=== PATIENT | female | born 1995 | race Hispanic/Latino ===

== ENCOUNTER 2019-03-18 11:20 | Emergency (ER) | payer MEDICAID ==
[2019-03-18] MEDS ORDERED: LIDOCAINE HCL-MPF 1% 2ML VIAL ONE (12:21)
[2019-03-18] MEDS ORDERED: ACETAMINOPHEN 325 MG TAB ONE (12:22)
[2019-03-18] MEDS ORDERED: KETOROLAC TROMETHAMINE 60 MG/2 ML VIAL ONE (12:22)
[2019-03-18] MEDS ORDERED: CEFTRIAXONE SODIUM 1 GM ONE (12:22)
== END 2019-03-18 12:41 | disposition home or self-care (01) ==
LOC: EDH 11:20
DX: J10.1 Influenza due to other identified influenza virus with other respiratory manifestations (principal); R50.81 Fever presenting with conditions classified elsewhere; J45.909 Unspecified asthma, uncomplicated; D64.9 Anemia, unspecified; Z87.891 Personal history of nicotine dependence
CPT/HCPCS: 81025; 87804 ×2; 87880; 96372 ×2; 99284; J0696; J1885; J3490

== ENCOUNTER 2019-04-03 10:24 | Emergency (ER) | payer MEDICAID | END 2019-04-03 11:18 | disposition home or self-care (01) | LOC: EDH 10:24 | DX: S00.83XA Contusion of other part of head, initial encounter (principal); J45.909 Unspecified asthma, uncomplicated; Y04.0XXA Assault by unarmed brawl or fight, initial encounter; Y93.89 Activity, other specified; Y92.098 Other place in other non-institutional residence as the place of occurrence of the external cause; Y99.8 Other external cause status | CPT/HCPCS: 99281 ==

== ENCOUNTER 2019-04-18 19:39 | Emergency (ER) | payer MEDICAID ==
[2019-04-18] MEDS ORDERED: ACETAMINOPHEN-CODEINE ELIXIR 5 ML UDCUP ONE (20:57)
== END 2019-04-18 21:35 | disposition home or self-care (01) ==
LOC: EDH 19:39
DX: J45.909 Unspecified asthma, uncomplicated (principal); R05 Cough